=== PATIENT | male | born 1955 | race Caucasian/White ===

== ENCOUNTER 2018-11-12 19:19 | Inpatient (IN) | payer MEDICARE, BC, MEDICAID | END 2018-11-18 22:30 | disposition home or self-care (01) | LOC: ER 19:19 → PCU 3S 11-13 07:17 → ED HOLD 23:38 | DX: A41.9 Sepsis, unspecified organism (principal); E11.00 Type 2 diabetes mellitus with hyperosmolarity without nonketotic hyperglycemic-hyperosmolar coma (NKHHC); N39.0 Urinary tract infection, site not specified; N17.9 Acute kidney failure, unspecified ==

== ENCOUNTER 2019-03-13 14:07 | Inpatient (IN) | payer BC, MEDICARE ==
[~2019-03-13] VITALS: Ht 172.7 cm; Wt 75.0 kg
[~2019-03-13 14:07] MED LIST: ATOR80TA PO; BACL20TA PO; CLOP75TA33 PO; LINA5TAB4 PO; LISI-222 PO; METF500T PO; METO-539 PO; NITR0.4T51 SL
[2019-03-13 14:48] LABS: BASOPHILS # (AUTO) 0.1 X10'3 (0-0.2); BASOPHILS % (AUTO) 0.6 % (0-1); EOSINOPHILS # (AUTO) 0.5 X10'3 (0-0.9); EOSINOPHILS % (AUTO) 3.3 % (0-6); HEMATOCRIT 35.3 % (42.0-52.0); HEMOGLOBIN 11.4 g/dl (14.0-17.9); LYMPHOCYTES # (AUTO) 1.7 X10'3 (1.1-4.8); LYMPHOCYTES % (AUTO) 10.2 % (21-51); MEAN CORPUSCULAR HEMOGLOBIN 27.2 PG (27.0-31.0); MEAN CORPUSCULAR HGB CONC 32.3 g/dL (33.0-36.5); MEAN CORPUSCULAR VOLUME 84.3 FL (78-98); MEAN PLATELET VOLUME 8.7 FL (7.4-10.4); MONOCYTES # (AUTO) 1.1 X10'3 (0-0.9); MONOCYTES % (AUTO) 6.6 % (2-12); NEUTROPHILS % (AUTO) 79.3 % (42-75); PLATELET COUNT 271 X10'3 (140-440); RED BLOOD COUNT 4.19 X10'6 (4.70-6.10); WHITE BLOOD COUNT 16.3 X10'3 (4.5-11.0)
[2019-03-13 15:05] LABS: ALANINE AMINOTRANSFERASE 27 U/L (12-78); ALBUMIN 3.1 G/DL (3.4-5.0); ALBUMIN/GLOBULIN RATIO 0.7 (1.1-1.5); ALKALINE PHOSPHATASE 75 IU/L (46-116); ANION GAP 7 (8-16); ASPARTATE AMINO TRANSFERASE 15 U/L (10-37); BILIRUBIN,TOTAL 0.2 MG/DL (0.1-1.0); BLOOD UREA NITROGEN 41 MG/DL (7-18); BUN/CREATININE RATIO 27.5 (5.4-32.0); CALCIUM 9.6 MG/DL (8.5-10.1); CHLORIDE 110 MMOL/L (99-107); CREATININE 1.49 MG/DL (0.60-1.10); GLUCOSE 179 MG/DL (70-104); POTASSIUM 4.5 MMOL/L (3.5-5.1); SODIUM 144 MMOL/L (135-145); TOTAL CARBON DIOXIDE 26.6 MMOL/L (24-32); TOTAL PROTEIN 7.4 G/DL (6.4-8.2); eGFR 47 ML/MIN
[2019-03-13 15:11] LABS: MAGNESIUM 1.9 MG/DL (1.5-2.4)
[2019-03-13 15:43] LABS: CLARITY,URINE TURBID (Clear); COLOR,URINE YELLOW (Yellow); GLUCOSE, URINE NEGATIVE (Neg); KETONES,URINE NEGATIVE (Neg); LEUKOCYTE ESTERASE ,URINE LARGE (Neg); NITRITES, URINE POSITIVE (Neg); OCCULT BLOOD,URINE TRACE-INTACT (Neg); PH,URINE 8.5 (4.8-8.0); PROTEIN,URINE 100 mg/dl (Neg); UROBILINOGEN,URINE 0.2 E.U/dL (0.2-1.0)
[2019-03-13 15:46] LABS: UA COLLECTION TYPE FOLEY CATH
[2019-03-13 15:50] LABS: MUCUS STRANDS MANY /LPF (Neg); RBC,URINE 0-2 /HPF (0-2); TRIPLE PHOSPHATE CRYST 1+ /HPF (NEGATIVE); WBC,URINE TNTC /HPF (0-4)
[2019-03-13 15:51] LABS: BACTERIA,URINE 3+ /HPF (Neg)
[2019-03-13 15:52] LABS: SQUAMOUS EPITHELIAL CELL,UR NONE SEEN /LPF (FEW); WBC CLUMPS,URINE MODERATE /HPF (NEGATIVE)
[2019-03-13] MEDS ORDERED: CefTRIAXone 2gm/D5W 50ml 50 ML IV ONE (16:00)
[2019-03-13] MEDS ORDERED: magnesium 2GM in 50ml NS 50 ML IV PRN (16:35)
[2019-03-13] MEDS: K and/or MAG REPLACEMENT MC SCH (16:35)
[2019-03-13] MEDS ORDERED: acetaminophen 650mg rectal suppository RC PRN (16:35)
[2019-03-13] MEDS ORDERED: mag hydrox/Alum hydrox/simeth 30ml oral suspension PO PRN (16:35)
[2019-03-13] MEDS ORDERED: dextrose 50%-water 50ml dispensing syringe IV PRN ×2 (16:35)
[2019-03-13] MEDS ORDERED: ondansetron/PF 4mg/2ml inj IV PRN (16:35)
[2019-03-13] MEDS ORDERED: magnesium 4gm in 100ml NS 100 ML IV PRN (16:35)
[2019-03-13] MEDS ORDERED: MESSAGE TO PHARMACY PO ONE (16:35)
[2019-03-13] MEDS ORDERED: potassium Cl 20 mEq SR tablet PO PRN ×2 (16:35)
[2019-03-13] MEDS ORDERED: magnesium Cl slow-release 64mg tablet PO PRN (16:35)
[2019-03-13] MEDS ORDERED: metoclopramide 5 mg/ml inj IV PRN (16:35)
[2019-03-13] MEDS ORDERED: dextrose ORAL solution 15 GM/59 ML bottle PO PRN ×2 (16:35)
[2019-03-13] MEDS ORDERED: diphenhydrAMINE 50 mg/ml inj IV PRN (16:35)
[2019-03-13] MEDS ORDERED: potassium CL 10mEq/100ml bag 100 ML IV PRN ×2 (16:35)
[2019-03-13] MEDS ORDERED: magnesium hydroxide 30ml (MOM) UD suspension PO PRN (16:35)
[2019-03-13] MEDS ORDERED: diphenhydrAMINE 25mg capsule PO PRN (16:35)
[2019-03-13] MEDS ORDERED: acetaminophen 325mg tablet PO PRN (16:35)
[2019-03-13] MEDS ORDERED: bisacodyl 10mg suppository rectal RC PRN (16:35)
[2019-03-13] MEDS ORDERED: glucagon, human recombinant 1mg kit SUBCUT PRN (16:35)
[2019-03-13] MEDS ORDERED: LANTUS SQ (16:43)
[2019-03-13] MEDS ORDERED: GABA-532 PO (16:49)
[2019-03-13] MEDS: normal saline 1000ml 1,000 ML IV SCH (16:58)
--- NOTE | 2019-03-13 18:04 | NUR ---
Problems reprioritized. Patient report given, questions answered & plan of care reviewed with SANDY Hart.
--- NOTE | 2019-03-13 18:15 | NUR ---
PT arrived on unit with all belongings, oriented to room Patient in room . I have received report from Tung DELGADO and had the opportunity to ask questions and assume patient care.
[2019-03-13 19:00] VITALS: BP 126/79
[2019-03-13 19:59] LABS: HEMOGLOBIN A1C 8.3 % (4.5-6.2)
[2019-03-13] MEDS: heparin, porcine 5000 units/ml vial SQ SCH (21:29)
[2019-03-13] MEDS: insulin glargine (Lantus) pen - multi-dose SQ SCH (21:43)
[2019-03-13] MEDS: insulin Lispro (HumaLOG) vial - multi-dose SQ SCH (21:44)
[2019-03-13 23:00] VITALS: BP 136/72
[2019-03-14 00:38] LABS: CLARITY,URINE SLIGHTLY CLOUDY (Clear); COLOR,URINE YELLOW (Yellow); GLUCOSE, URINE 100 mg/dl (Neg); KETONES,URINE NEGATIVE (Neg); LEUKOCYTE ESTERASE ,URINE MODERATE (Neg); NITRITES, URINE POSITIVE (Neg); OCCULT BLOOD,URINE TRACE-INTACT (Neg); PROTEIN,URINE NEGATIVE (Neg); UROBILINOGEN,URINE 0.2 E.U/dL (0.2-1.0)
[2019-03-14 00:49] LABS: UA COLLECTION TYPE NON-SPECIFIED
[2019-03-14 00:50] LABS: BACTERIA,URINE 2+ /HPF (Neg); RBC,URINE 0-2 /HPF (0-2); SQUAMOUS EPITHELIAL CELL,UR FEW /LPF (FEW)
[2019-03-14] MEDS: normal saline 1000ml 1,000 ML IV SCH ×2 (02:20→18:36)
[2019-03-14 03:00] VITALS: BP 140/59
[2019-03-14 03:15] LABS: BASOPHILS # (AUTO) 0.1 X10'3 (0-0.2); BASOPHILS % (AUTO) 0.5 % (0-1); EOSINOPHILS # (AUTO) 0.4 X10'3 (0-0.9); HEMATOCRIT 34.3 % (42.0-52.0); HEMOGLOBIN 11.2 g/dl (14.0-17.9); LYMPHOCYTES # (AUTO) 2.5 X10'3 (1.1-4.8); MEAN CORPUSCULAR HEMOGLOBIN 27.4 PG (27.0-31.0); MEAN CORPUSCULAR HGB CONC 32.7 g/dL (33.0-36.5); MEAN CORPUSCULAR VOLUME 83.8 FL (78-98); MEAN PLATELET VOLUME 9.1 FL (7.4-10.4); MONOCYTES # (AUTO) 1.1 X10'3 (0-0.9); MONOCYTES % (AUTO) 10.2 % (2-12); NEUTROPHILS # (AUTO) 7.1 X10'3 (1.8-7.7); NEUTROPHILS % (AUTO) 63.3 % (42-75); PLATELET COUNT 275 X10'3 (140-440); RED BLOOD COUNT 4.09 X10'6 (4.70-6.10); WHITE BLOOD COUNT 11.2 X10'3 (4.5-11.0)
[2019-03-14 03:24] LABS: ALANINE AMINOTRANSFERASE 27 U/L (12-78); ALBUMIN/GLOBULIN RATIO 0.7 (1.1-1.5); ALKALINE PHOSPHATASE 73 IU/L (46-116); ANION GAP 7 (8-16); ASPARTATE AMINO TRANSFERASE 16 U/L (10-37); BILIRUBIN,TOTAL 0.2 MG/DL (0.1-1.0); BLOOD UREA NITROGEN 33 MG/DL (7-18); CALCIUM 8.6 MG/DL (8.5-10.1); CHLORIDE 108 MMOL/L (99-107); CREATININE 1.18 MG/DL (0.60-1.10); GLUCOSE 125 MG/DL (70-104); POTASSIUM 4.3 MMOL/L (3.5-5.1); SODIUM 140 MMOL/L (135-145); TOTAL CARBON DIOXIDE 25.4 MMOL/L (24-32); TOTAL PROTEIN 7.3 G/DL (6.4-8.2); eGFR 62 ML/MIN
[2019-03-14 03:27] LABS: CHOL/HDL RATIO 4.7 (0.00-4.99); CHOLESTEROL 112 MG/DL (0-200); HDL CHOLESTEROL 24 MG/DL (35-60); LDL CHOLESTEROL 68 MG/DL (50-100); MAGNESIUM 1.8 MG/DL (1.5-2.4); PHOSPHORUS 3.2 MG/DL (2.3-4.5); TRIGLYCERIDES 108 MG/DL (20-135)
[2019-03-14] MEDS: acetaminophen 325mg tablet PO PRN ×2 (04:01→09:54)
[2019-03-14 06:00] VITALS: BP 152/55
--- NOTE | 2019-03-14 06:02 | NUR ---
Problems reprioritized. Patient report given, questions answered & plan of care reviewed with Tung DELGADO.
--- NOTE | 2019-03-14 06:10 | NUR ---
Patient in room PCU 3017. I have received report from SANDY Escalona and had the opportunity to ask questions and assume patient care.
--- NOTE | 2019-03-14 06:23 | NUR ---
Problems reprioritized. Patient report given, questions answered & plan of care reviewed with Tung DELGADO.
[2019-03-14] MEDS: K and/or MAG REPLACEMENT MC SCH (07:30)
[2019-03-14] MEDS: heparin, porcine 5000 units/ml vial SQ SCH (07:47)
[2019-03-14] MEDS: CefTRIAXone/D5W-Rocephin 1gm 50 ML IV SCH (07:47)
[2019-03-14 11:00] VITALS: BP 151/63
--- NOTE | 2019-03-14 13:42 | NUR ---
PAGER ID: [phone] MESSAGE: [id number] Oz Sewell: Can he get something strong than Tylenol for back pain(03/04)? SANDY Ruby Ext [id number]
[2019-03-14] MEDS ORDERED: nitroGLYCERIN 0.4mg SUBLingual tab SL PRN (13:45)
[2019-03-14] MEDS: HYDROcodone/acetaminophen 5mg/325mg tablet PO PRN (14:25)
--- NOTE | 2019-03-14 14:54 | NUR ---
Dr Juanito Baker recommends non contrast CT scan. Addendum: 03/14/19 at 1455 by Tung Childers RN reasons to see if it is a hemorhage.
[2019-03-14 15:00] VITALS: BP 156/72
--- NOTE | 2019-03-14 18:14 | NUR ---
PAGER ID: [phone] MESSAGE: [id number] Oz Sewell: Dr Baker recommended head CT to better visualize problem area. SANDY Ruby Ext [id number] (112 character message out of a maximum of 240)
--- NOTE | 2019-03-14 18:15 | NUR ---
Problems reprioritized. Patient report given, questions answered & plan of care reviewed with Pola RN.
--- NOTE | 2019-03-14 18:21 | NUR ---
Patient in room PCU 3017. I have received report from Tung DELGADO and had the opportunity to ask questions and assume patient care.
[2019-03-14 19:00] VITALS: BP 128/49
--- NOTE | 2019-03-14 20:03 | NUR ---
notified called susana Haynes noted coming from urethral opening, [employer] intermediary white in place prior to admit. pt states that white is replaced once per month at home and it has been greater than one month at this point. the urethral opening apears to have deviated to the right (the same side as leg bag upon admit). the white is now to hooked up to a hospital "bed bag" instead of leg bag. . relayed that this needs to be addressed by day shift doctor and possibly neurology, i will relay this observation to day shift.
[2019-03-14] MEDS: gabapentin 300mg capsule PO SCH (21:18)
[2019-03-14] MEDS: temazepam 15mg capsule PO PRN (21:18)
[2019-03-14] MEDS: atorvastatin 20mg tablet PO SCH (21:18)
[2019-03-14] MEDS: baclofen 10mg tablet PO SCH (21:19)
[2019-03-14] MEDS: metoprolol succinate 25mg (24-HOUR) SR. Tablet PO SCH (21:20)
[2019-03-14] MEDS: insulin glargine (Lantus) pen - multi-dose SQ SCH (21:21)
[2019-03-14 22:00] VITALS: BP 122/57
[2019-03-15 03:00] VITALS: BP 143/57
[2019-03-15] MEDS: normal saline 1000ml 1,000 ML IV SCH ×2 (05:50→08:31)
[2019-03-15 05:54] LABS: BASOPHILS # (AUTO) 0.1 X10'3 (0-0.2); BASOPHILS % (AUTO) 0.7 % (0-1); EOSINOPHILS # (AUTO) 0.5 X10'3 (0-0.9); EOSINOPHILS % (AUTO) 5.1 % (0-6); HEMATOCRIT 34.1 % (42.0-52.0); HEMOGLOBIN 11.4 g/dl (14.0-17.9); LYMPHOCYTES % (AUTO) 19.2 % (21-51); MEAN CORPUSCULAR HEMOGLOBIN 27.8 PG (27.0-31.0); MEAN CORPUSCULAR HGB CONC 33.3 g/dL (33.0-36.5); MEAN CORPUSCULAR VOLUME 83.4 FL (78-98); NEUTROPHILS # (AUTO) 6.6 X10'3 (1.8-7.7); PLATELET COUNT 271 X10'3 (140-440); RED BLOOD COUNT 4.09 X10'6 (4.70-6.10); RED CELL DISTRIBUTION WIDTH 15.8 % (11.5-14.5); WHITE BLOOD COUNT 10.2 X10'3 (4.5-11.0)
--- NOTE | 2019-03-15 06:19 | NUR ---
Problems reprioritized. Patient report given, questions answered & plan of care reviewed with Gray DELGADO.
--- NOTE | 2019-03-15 06:20 | NUR ---
Patient in room PCU 3017. I have received report from Pola RN and had the opportunity to ask questions and assume patient care.
[2019-03-15 06:23] LABS: ALANINE AMINOTRANSFERASE 21 U/L (12-78); ALBUMIN 2.8 G/DL (3.4-5.0); ALBUMIN/GLOBULIN RATIO 0.7 (1.1-1.5); ALKALINE PHOSPHATASE 70 IU/L (46-116); ANION GAP 9 (8-16); ASPARTATE AMINO TRANSFERASE 13 U/L (10-37); BILIRUBIN,TOTAL 0.2 MG/DL (0.1-1.0); BLOOD UREA NITROGEN 22 MG/DL (7-18); CALCIUM 8.2 MG/DL (8.5-10.1); CHLORIDE 109 MMOL/L (99-107); CREATININE 1.05 MG/DL (0.60-1.10); GLUCOSE 111 MG/DL (70-104); MAGNESIUM 1.8 MG/DL (1.5-2.4); PHOSPHORUS 2.9 MG/DL (2.3-4.5); POTASSIUM 3.9 MMOL/L (3.5-5.1); SODIUM 141 MMOL/L (135-145); TOTAL CARBON DIOXIDE 23.4 MMOL/L (24-32); TOTAL PROTEIN 6.9 G/DL (6.4-8.2); eGFR 71 ML/MIN
[2019-03-15 06:42] VITALS: BP 165/66
[2019-03-15] MEDS: metoprolol succinate 25mg (24-HOUR) SR. Tablet PO SCH ×2 (08:00→21:32)
[2019-03-15] MEDS: K and/or MAG REPLACEMENT MC SCH (08:00)
[2019-03-15] MEDS: CefTRIAXone/D5W-Rocephin 1gm 50 ML IV SCH (08:01)
[2019-03-15] MEDS: baclofen 10mg tablet PO SCH ×3 (08:02→21:33)
[2019-03-15] MEDS: lisinopril 5mg tablet PO SCH (08:02)
[2019-03-15] MEDS: clopidogrel 75mg tablet PO SCH (08:02)
[2019-03-15 11:00] VITALS: BP 126/58
[2019-03-15] MEDS: insulin Lispro (HumaLOG) vial - multi-dose SQ SCH ×2 (13:30→19:07)
[2019-03-15 15:00] VITALS: BP 121/54
--- NOTE | 2019-03-15 18:15 | NUR ---
Problems reprioritized. Patient report given, questions answered & plan of care reviewed with Pola RN.
--- NOTE | 2019-03-15 18:35 | NUR ---
Patient in room PCU 3017. I have received report from Gray DELGADO and had the opportunity to ask questions and assume patient care.
[2019-03-15 19:00] VITALS: BP 105/50
--- NOTE | 2019-03-15 19:34 | NUR ---
pt REFUSED WHITE CARE pt will not allow for white care alfreda pt states "it was just replaced today, it hurts too much when you clean it". education was given to pt on the importance of care and he still refuses.
[2019-03-15] MEDS: gabapentin 300mg capsule PO SCH (21:32)
[2019-03-15] MEDS: lactobacillus rhamnosus 10,000 MMU CELLS/CAPSULE PO SCH (21:32)
[2019-03-15] MEDS: atorvastatin 20mg tablet PO SCH (21:33)
[2019-03-15] MEDS: temazepam 15mg capsule PO PRN (21:33)
[2019-03-15] MEDS: insulin glargine (Lantus) pen - multi-dose SQ SCH (21:46)
[2019-03-15 23:00] VITALS: BP 119/47
[2019-03-16] VITALS (7 sets, daily range): BP systolic 133–163; BP diastolic 41–74
[2019-03-16] MEDS: normal saline 1000ml 1,000 ML IV SCH ×3 (02:30→15:01)
--- NOTE | 2019-03-16 06:08 | NUR ---
Patient in room PCU 3017. I have received report from Pola RN and had the opportunity to ask questions and assume patient care.
--- NOTE | 2019-03-16 06:17 | NUR ---
Problems reprioritized. Patient report given, questions answered & plan of care reviewed with Gray DELGADO.
[2019-03-16 06:45] LABS: BASOPHILS % (AUTO) 0.5 % (0-1); EOSINOPHILS # (AUTO) 0.4 X10'3 (0-0.9); EOSINOPHILS % (AUTO) 5.4 % (0-6); HEMATOCRIT 31.1 % (42.0-52.0); HEMOGLOBIN 10.4 g/dl (14.0-17.9); LYMPHOCYTES # (AUTO) 1.7 X10'3 (1.1-4.8); LYMPHOCYTES % (AUTO) 20.2 % (21-51); MEAN CORPUSCULAR HEMOGLOBIN 28.2 PG (27.0-31.0); MEAN CORPUSCULAR HGB CONC 33.3 g/dL (33.0-36.5); MEAN CORPUSCULAR VOLUME 84.7 FL (78-98); MONOCYTES # (AUTO) 0.8 X10'3 (0-0.9); MONOCYTES % (AUTO) 10.4 % (2-12); NEUTROPHILS # (AUTO) 5.2 X10'3 (1.8-7.7); NEUTROPHILS % (AUTO) 63.5 % (42-75); PLATELET COUNT 256 X10'3 (140-440); RED BLOOD COUNT 3.68 X10'6 (4.70-6.10); RED CELL DISTRIBUTION WIDTH 16.2 % (11.5-14.5); WHITE BLOOD COUNT 8.2 X10'3 (4.5-11.0)
[2019-03-16 07:20] LABS: ALANINE AMINOTRANSFERASE 14 U/L (12-78); ALBUMIN 2.6 G/DL (3.4-5.0); ALBUMIN/GLOBULIN RATIO 0.7 (1.1-1.5); ALKALINE PHOSPHATASE 67 IU/L (46-116); ANION GAP 11 (8-16); ASPARTATE AMINO TRANSFERASE 15 U/L (10-37); BILIRUBIN,TOTAL 0.2 MG/DL (0.1-1.0); BLOOD UREA NITROGEN 15 MG/DL (7-18); BUN/CREATININE RATIO 15.5 (5.4-32.0); CALCIUM 8.3 MG/DL (8.5-10.1); CHLORIDE 115 MMOL/L (99-107); CREATININE 0.97 MG/DL (0.60-1.10); GLUCOSE 136 MG/DL (70-104); MAGNESIUM 1.9 MG/DL (1.5-2.4); PHOSPHORUS 2.6 MG/DL (2.3-4.5); POTASSIUM 3.9 MMOL/L (3.5-5.1); SODIUM 146 MMOL/L (135-145); TOTAL CARBON DIOXIDE 20.4 MMOL/L (24-32); TOTAL PROTEIN 6.1 G/DL (6.4-8.2); eGFR 78 ML/MIN
[2019-03-16] MEDS: clopidogrel 75mg tablet PO SCH (07:47)
[2019-03-16] MEDS: CefTRIAXone/D5W-Rocephin 1gm 50 ML IV SCH (07:47)
[2019-03-16] MEDS: baclofen 10mg tablet PO SCH ×3 (07:48→20:21)
[2019-03-16] MEDS: lactobacillus rhamnosus 10,000 MMU CELLS/CAPSULE PO SCH ×2 (07:48→20:21)
[2019-03-16] MEDS: lisinopril 5mg tablet PO SCH (07:52)
[2019-03-16] MEDS: metoprolol succinate 25mg (24-HOUR) SR. Tablet PO SCH ×2 (08:00→20:23)
[2019-03-16] MEDS: K and/or MAG REPLACEMENT MC SCH (08:00)
[2019-03-16] MEDS: insulin Lispro (HumaLOG) vial - multi-dose SQ SCH ×2 (08:58→19:07)
[2019-03-16] MEDS: HYDROcodone/acetaminophen 5mg/325mg tablet PO PRN (14:59)
--- NOTE | 2019-03-16 15:00 | NUR ---
Patient in room PCU 3011. I have received report from Jon DELGADO and had the opportunity to ask questions and assume patient care.
--- NOTE | 2019-03-16 16:32 | NUR ---
DM Consult: A1C 8.3. Pt admit w/ UTI/syncope. Pt seen by RD for written DM ed; RD contact information provided. Pt very agitated at baseline during RD visit cursing, complaining of care over past years, and prior life injustices. Pt reports knowing all there is regarding DM and declined verbal review. Pt PO 100% carb controlled meals meeting needs. No BM yet this admit. Pt requested to see a psychiatrist during RD visit; MARIA GUADALUPE d/w RN for psychiatry consult pending MD approval. No nutrition concerns at this time. Rec: 1. continue carb controlled diet 2. wt per rx Addendum: 03/16/19 at [address] Amended: Links added.
--- NOTE | 2019-03-16 20:00 | NUR ---
Patient has been inappropriate with female staff, continues to use call light to have staff come to room for no reason. He was also very confrontational with me, insisted I call a psychologist because he need counseling but would not tell me why. I advised him we did not have a psychologist on staff and that might be an outpatient service (not happy about this). He then wanted to know if we has clergy on staff, I advised him we do and if he wanted to speak with one I would have dayshift try to arrange that. He exhibits attention seeking behavior, I will continue to monitor. I also counseled him against harassing staff with inappropriate behavior.
[2019-03-16] MEDS: atorvastatin 20mg tablet PO SCH (20:23)
[2019-03-16] MEDS: gabapentin 300mg capsule PO SCH (20:23)
[2019-03-16] MEDS: temazepam 15mg capsule PO PRN (20:29)
[2019-03-16] MEDS: insulin glargine (Lantus) pen - multi-dose SQ SCH (21:00)
--- NOTE | 2019-03-16 21:08 | NUR ---
Patients BG 61 will hold Lantus and start hyperglycemia over again.
[2019-03-16] MEDS: vancomycin/NS 1 GM ADD-VANTAGE 250 ML IV SCH (21:19)
[2019-03-17] VITALS (7 sets, daily range): BP systolic 117–142; BP diastolic 42–74
[2019-03-17] MEDS: normal saline 1000ml 1,000 ML IV SCH (02:40)
[2019-03-17 04:50] LABS: BASOPHILS # (AUTO) 0.1 X10'3 (0-0.2); BASOPHILS % (AUTO) 0.5 % (0-1); EOSINOPHILS # (AUTO) 0.5 X10'3 (0-0.9); EOSINOPHILS % (AUTO) 3.5 % (0-6); HEMATOCRIT 33.5 % (42.0-52.0); HEMOGLOBIN 11.2 g/dl (14.0-17.9); LYMPHOCYTES # (AUTO) 1.5 X10'3 (1.1-4.8); LYMPHOCYTES % (AUTO) 10.6 % (21-51); MEAN CORPUSCULAR HEMOGLOBIN 27.9 PG (27.0-31.0); MEAN CORPUSCULAR HGB CONC 33.4 g/dL (33.0-36.5); MEAN CORPUSCULAR VOLUME 83.4 FL (78-98); MONOCYTES # (AUTO) 1.2 X10'3 (0-0.9); MONOCYTES % (AUTO) 8.4 % (2-12); NEUTROPHILS # (AUTO) 11.1 X10'3 (1.8-7.7); PLATELET COUNT 272 X10'3 (140-440); RED BLOOD COUNT 4.02 X10'6 (4.70-6.10); RED CELL DISTRIBUTION WIDTH 16.3 % (11.5-14.5); WHITE BLOOD COUNT 14.4 X10'3 (4.5-11.0)
[2019-03-17 05:02] LABS: ALANINE AMINOTRANSFERASE 18 U/L (12-78); ALBUMIN 2.5 G/DL (3.4-5.0); ALBUMIN/GLOBULIN RATIO 0.7 (1.1-1.5); ALKALINE PHOSPHATASE 69 IU/L (46-116); ANION GAP 6 (8-16); ASPARTATE AMINO TRANSFERASE 10 U/L (10-37); BILIRUBIN,TOTAL 0.3 MG/DL (0.1-1.0); BLOOD UREA NITROGEN 16 MG/DL (7-18); CALCIUM 8.4 MG/DL (8.5-10.1); CHLORIDE 110 MMOL/L (99-107); CREATININE 0.94 MG/DL (0.60-1.10); GLUCOSE 173 MG/DL (70-104); MAGNESIUM 1.8 MG/DL (1.5-2.4); PHOSPHORUS 2.5 MG/DL (2.3-4.5); POTASSIUM 3.9 MMOL/L (3.5-5.1); SODIUM 140 MMOL/L (135-145); TOTAL CARBON DIOXIDE 24.5 MMOL/L (24-32); TOTAL PROTEIN 6.1 G/DL (6.4-8.2); eGFR 81 ML/MIN
--- NOTE | 2019-03-17 06:30 | NUR ---
Patient in room PCU 3011. I have received report from wilmer heredia and had the opportunity to ask questions and assume patient care.
--- NOTE | 2019-03-17 06:41 | NUR ---
Problems reprioritized. Patient report given, questions answered & plan of care reviewed with SANYD Cui.
[2019-03-17] MEDS: K and/or MAG REPLACEMENT MC SCH (08:00)
[2019-03-17] MEDS: baclofen 10mg tablet PO SCH ×3 (08:05→20:28)
[2019-03-17] MEDS: lactobacillus rhamnosus 10,000 MMU CELLS/CAPSULE PO SCH ×2 (08:05→20:27)
[2019-03-17] MEDS: clopidogrel 75mg tablet PO SCH (08:05)
[2019-03-17] MEDS: lisinopril 5mg tablet PO SCH (08:06)
[2019-03-17] MEDS: metoprolol succinate 25mg (24-HOUR) SR. Tablet PO SCH ×2 (08:06→20:00)
[2019-03-17] MEDS: HYDROcodone/acetaminophen 5mg/325mg tablet PO PRN ×2 (08:12→20:28)
[2019-03-17] MEDS: vancomycin/NS 1 GM ADD-VANTAGE 250 ML IV SCH ×2 (08:57→20:29)
--- NOTE | 2019-03-17 16:04 | NUR ---
PAGER ID: [phone] MESSAGE: DR. CROCKER, 3011A/KUSH, HR DOWN TO 38, HE WAS AWAKE, ASX, BP 128/51, HR 55 AT THAT TIME. KAYKAY [id number], TY
--- NOTE | 2019-03-17 18:29 | NUR ---
Problems reprioritized. Patient report given, questions answered & plan of care reviewed with SANDY SOLIMAN.
[2019-03-17] MEDS: insulin Lispro (HumaLOG) vial - multi-dose SQ SCH (19:15)
[2019-03-17] MEDS: gabapentin 300mg capsule PO SCH (20:28)
[2019-03-17] MEDS: atorvastatin 20mg tablet PO SCH (20:28)
[2019-03-17] MEDS: insulin glargine (Lantus) pen - multi-dose SQ SCH (21:49)
[2019-03-18 03:00] VITALS: BP 177/76
--- NOTE | 2019-03-18 06:05 | NUR ---
Patient in room PCU 3011. I have received report from Obinna DELGADO and had the opportunity to ask questions and assume patient care.
--- NOTE | 2019-03-18 06:25 | NUR ---
Problems reprioritized. Patient report given, questions answered & plan of care reviewed with KELLEN. Addendum: 03/18/19 at 0625 by Lamont Hare RN Amended: Links added.
[2019-03-18 06:49] VITALS: BP 177/76
[2019-03-18] MEDS: lactobacillus rhamnosus 10,000 MMU CELLS/CAPSULE PO SCH (07:31)
[2019-03-18] MEDS: clopidogrel 75mg tablet PO SCH (07:32)
[2019-03-18] MEDS: baclofen 10mg tablet PO SCH ×2 (07:32→13:47)
[2019-03-18] MEDS: lisinopril 5mg tablet PO SCH (07:32)
[2019-03-18] MEDS: metoprolol succinate 25mg (24-HOUR) SR. Tablet PO SCH (08:00)
[2019-03-18] MEDS: K and/or MAG REPLACEMENT MC SCH (08:00)
[2019-03-18] MEDS ORDERED: VANCOMYCIN LEVEL IV ONE (08:30)
[2019-03-18 08:56] LABS: BASOPHILS % (AUTO) 0.5 % (0-1); EOSINOPHILS # (AUTO) 0.5 X10'3 (0-0.9); EOSINOPHILS % (AUTO) 5.7 % (0-6); HEMATOCRIT 33.1 % (42.0-52.0); HEMOGLOBIN 10.9 g/dl (14.0-17.9); LYMPHOCYTES # (AUTO) 1.6 X10'3 (1.1-4.8); LYMPHOCYTES % (AUTO) 17.3 % (21-51); MEAN CORPUSCULAR HEMOGLOBIN 27.8 PG (27.0-31.0); MEAN CORPUSCULAR VOLUME 84.1 FL (78-98); MONOCYTES # (AUTO) 0.8 X10'3 (0-0.9); NEUTROPHILS # (AUTO) 6.4 X10'3 (1.8-7.7); NEUTROPHILS % (AUTO) 67.5 % (42-75); PLATELET COUNT 262 X10'3 (140-440); RED BLOOD COUNT 3.93 X10'6 (4.70-6.10); RED CELL DISTRIBUTION WIDTH 16.6 % (11.5-14.5); WHITE BLOOD COUNT 9.5 X10'3 (4.5-11.0)
[2019-03-18] MEDS ORDERED: SULF1TAB49 PO (09:19)
[2019-03-18] MEDS ORDERED: LACT1CAP26 PO (09:19)
[2019-03-18 09:33] LABS: ALANINE AMINOTRANSFERASE 24 U/L (12-78); ALBUMIN 2.6 G/DL (3.4-5.0); ALBUMIN/GLOBULIN RATIO 0.7 (1.1-1.5); ALKALINE PHOSPHATASE 75 IU/L (46-116); ANION GAP 5 (8-16); ASPARTATE AMINO TRANSFERASE 13 U/L (10-37); BILIRUBIN,TOTAL 0.3 MG/DL (0.1-1.0); BLOOD UREA NITROGEN 16 MG/DL (7-18); BUN/CREATININE RATIO 16.8 (5.4-32.0); CALCIUM 8.5 MG/DL (8.5-10.1); CHLORIDE 110 MMOL/L (99-107); CREATININE 0.95 MG/DL (0.60-1.10); GLUCOSE 155 MG/DL (70-104); MAGNESIUM 1.8 MG/DL (1.5-2.4); PHOSPHORUS 2.3 MG/DL (2.3-4.5); POTASSIUM 4.2 MMOL/L (3.5-5.1); SODIUM 141 MMOL/L (135-145); TOTAL CARBON DIOXIDE 26.1 MMOL/L (24-32); TOTAL PROTEIN 6.4 G/DL (6.4-8.2); eGFR 80 ML/MIN
[2019-03-18 11:00] VITALS: BP 147/56
[2019-03-18] MEDS: vancomycin/NS 1 GM ADD-VANTAGE 250 ML IV SCH (11:36)
--- NOTE | 2019-03-18 14:44 | NUR ---
Patient discharged. Patient discharged home via private vehicle accompanied by two daughters and granddaughter. IV catheter removed prior to discharge, catheter intact. Tele leads removed from patient prior to discharge. Tele box returned to radiotelegraphist. New prescriptions called into patient's preferred pharmacy of [facility] in [place], [place]. Discharge instructions provided to patient and discussed with patient via RN. All questions and concerns addressed with patient prior to discharge. All patient belongings sent home with patient upon discharge. Patient escorted out of facility via RN and proceeded to leave in private vehicle driven by patient's granddaughter.
== END 2019-03-18 14:36 | disposition home health service (06) | DRG 698 ==
LOC: ER 14:08 → PCU 3S 18:22 → ER 03-15 09:58 → PCU 3S 03-15 10:03
PROVIDERS: ADMIT Family Medicine; ATTEND Family Medicine
PROC: 0T2BX0Z Change Drainage Device in Bladder, External Approach (ICD-10-PCS; principal; 2019-03-15)
DX: T83.511A Infection and inflammatory reaction due to indwelling urethral catheter, initial encounter (principal); N17.0 Acute kidney failure with tubular necrosis; I69.354 Hemiplegia and hemiparesis following cerebral infarction affecting left non-dominant side; N39.0 Urinary tract infection, site not specified; B95.62 Methicillin resistant Staphylococcus aureus infection as the cause of diseases classified elsewhere; Y84.6 Urinary catheterization as the cause of abnormal reaction of the patient, or of later complication, without mention of misadventure at the time of the procedure; N31.2 Flaccid neuropathic bladder, not elsewhere classified; E11.65 Type 2 diabetes mellitus with hyperglycemia; E78.5 Hyperlipidemia, unspecified; M24.532 Contracture, left wrist; M24.562 Contracture, left knee; F12.10 Cannabis abuse, uncomplicated; I10 Essential (primary) hypertension; I25.10 Atherosclerotic heart disease of native coronary artery without angina pectoris; I25.2 Old myocardial infarction; Z88.6 Allergy status to analgesic agent; Z74.01 Bed confinement status; Z79.02 Long term (current) use of antithrombotics/antiplatelets; Z79.4 Long term (current) use of insulin; Z80.42 Family history of malignant neoplasm of prostate; Z82.49 Family history of ischemic heart disease and other diseases of the circulatory system; Z95.5 Presence of coronary angioplasty implant and graft; Z95.1 Presence of aortocoronary bypass graft; Y92.89 Other specified places as the place of occurrence of the external cause; Z87.891 Personal history of nicotine dependence
CPT/HCPCS: 36415; 71045; 80053; 80061; 80202; 81001; 82948; 83036; 83605; 83735; 83880; 84100; 84145; 84443; 84484; 85025; 85610; 87040; 87077; 87081; 87088; 87186; 93005; 93306; 96365; 96372; 97161; 97530; 99285; G0378; J0696; J1644; J1815; J3370; J7030